=== PATIENT | female | born 2000 ===

== ENCOUNTER 2023-09-17 14:25 | Emergency (ER) | payer MEDICAID ==
[2023-09-17 15:02] LABS: APPEARANCE,URINE SLT CLOUDY; BILIRUBIN,URINE NEGATIVE (NEGATIVE); COLOR,URINE YELLOW; GLUCOSE,URINE NEGATIVE (NEGATIVE); KETONES,URINE 15 mg/dL (NEGATIVE); LEUKOCYTE ESTERASE,URINE MODERATE (NEGATIVE); NITRITE,URINE POSITIVE (NEGATIVE); OCCULT BLOOD,URINE MODERATE (NEGATIVE); PROTEIN,URINE 100 mg/dL (NEGATIVE)
[2023-09-17 15:14] LABS: BACTERIA,URINE 4+ (NEGATIVE); MUCUS,URINE LIGHT (NONE-MOD); SQUAMOUS EPITHELIAL CELLS,UR FEW; WBC,URINE 50-75 (0-5/HPF)
[2023-09-17] MEDS: Ibuprofen 400 MG Tab PO ONE (15:14)
[2023-09-17] MEDS: Sodium Chloride 0.9% 1,000 ML IV ONE (15:14)
[2023-09-17 15:33] LABS: BASOPHILS ABSOLUTE AUTO 0.04 K/uL (0.00-0.20); BASOPHILS PERCENT AUTO 0.3 % (0.0-1.0); EOSINOPHILS ABSOLUTE AUTO 0.18 K/uL (0.00-0.45); EOSINOPHILS PERCENT AUTO 1.5 % (0.0-6.0); HEMATOCRIT 33.4 % (37.0-47.0); HEMOGLOBIN 10.9 g/dL (12.0-16.0); IMMATURE GRAN ABSOLUTE AUTO 0.14 K/uL (0.00-0.05); IMMATURE GRAN PERCENT AUTO 1.2 % (0.0-0.4); LYMPHOCYTES ABSOLUTE AUTO 1.01 K/uL (1.00-4.80); LYMPHOCYTES PERCENT AUTO 8.4 % (24.0-44.0); MEAN CORPUSCULAR HEMOGLOBIN 27.1 pg (28.0-32.0); MEAN CORPUSCULAR HGB CONC 32.6 g/dL (32.0-36.0); MEAN CORPUSCULAR VOLUME 83.1 fL (83.0-99.0); MEAN PLATELET VOLUME 9.1 fL (9.4-12.3); MONOCYTES ABSOLUTE AUTO 0.69 K/uL (0.00-0.80); MONOCYTES PERCENT AUTO 5.7 % (0.0-8.0); NEUTROPHILS ABSOLUTE AUTO 10.02 K/uL (1.80-7.70); NEUTROPHILS PERCENT AUTO 82.9 % (41.0-71.0); PLATELET COUNT,PLT 359 K/uL (150-400); RED BLOOD CELL COUNT 4.02 M/uL (4.10-5.30); WHITE BLOOD CELL COUNT,WBC 12.08 K/uL (3.9-11.3)
[2023-09-17] MEDS: cefTRIAXone 1 GM in Sodium Chloride 0.9% 50 ML IV ONE (15:52)
[2023-09-17 16:00] LABS: A/G RATIO 0.5 (0.9-1.6); ALBUMIN 2.2 g/dL (3.4-5.0); BILIRUBIN TOTAL 0.5 mg/dL (0.2-1.0); CALCIUM 8.8 mg/dL (8.5-10.1); CARBON DIOXIDE,CO2 25.8 mmol/L (21.0-32.0); CREATININE 0.7 mg/dL (0.6-1.0); EST CRCL DRUG DOSING (CG) 111.51 mL/min; POTASSIUM,K 3.5 mmol/L (3.5-5.1); PROTEIN TOTAL,TP 6.8 g/dL (6.4-8.2)
[2023-09-17 16:10] LABS: LACTIC ACID 0.9 mmol/L (0.4-2.0)
[2023-09-17 16:12] LABS: CORONAVIRUS COVID-19 NAA NEGATIVE (NEGATIVE); INFLUENZA A NAA NEGATIVE (NEGATIVE); INFLUENZA B NAA NEGATIVE (NEGATIVE); RESPIRATORY SYNCYTIAL VIR NAA NEGATIVE (NEGATIVE)
== END 2023-09-17 16:59 | disposition home or self-care (01) ==
LOC: MW.ED 14:25
DX: O86.21 Infection of kidney following delivery (principal); N12 Tubulo-interstitial nephritis, not specified as acute or chronic; Z79.899 Other long term (current) drug therapy; Z75.8 Other problems related to medical facilities and other health care
CPT/HCPCS: 0241U; 36415; 76857; 80053; 81001; 83605; 84702; 85025; 87040; 96361; 96365; 99284; A9270; J0696; J3490; J7030

== ENCOUNTER 2023-09-22 11:30 | Emergency (ER) | payer MEDICAID ==
[2023-09-22] MEDS: Sodium Chloride 0.9% 10 ML Syringe FLUSH PRN (12:12)
[2023-09-22] MEDS: Sodium Chloride 0.9% 2.5 ML Syringe FLUSH PRN (12:12)
[2023-09-22 12:44] LABS: A/G RATIO 0.4 (0.9-1.6); ALBUMIN 2.1 g/dL (3.4-5.0); BILIRUBIN TOTAL 0.2 mg/dL (0.2-1.0); CALCIUM 9.1 mg/dL (8.5-10.1); CARBON DIOXIDE,CO2 24.8 mmol/L (21.0-32.0); CREATININE 0.6 mg/dL (0.6-1.0); EST CRCL DRUG DOSING (CG) 135.35 mL/min; POTASSIUM,K 3.5 mmol/L (3.5-5.1)
[2023-09-22 12:55] LABS: BASOPHILS ABSOLUTE AUTO 0.04 K/uL (0.00-0.20); BASOPHILS PERCENT AUTO 0.6 % (0.0-1.0); EOSINOPHILS ABSOLUTE AUTO 0.28 K/uL (0.00-0.45); EOSINOPHILS PERCENT AUTO 4.5 % (0.0-6.0); HEMOGLOBIN 10.2 g/dL (12.0-16.0); IMMATURE GRAN ABSOLUTE AUTO 0.29 K/uL (0.00-0.05); IMMATURE GRAN PERCENT AUTO 4.7 % (0.0-0.4); LYMPHOCYTES ABSOLUTE AUTO 1.88 K/uL (1.00-4.80); LYMPHOCYTES PERCENT AUTO 30.3 % (24.0-44.0); MEAN CORPUSCULAR HEMOGLOBIN 26.7 pg (28.0-32.0); MEAN CORPUSCULAR HGB CONC 31.9 g/dL (32.0-36.0); MEAN CORPUSCULAR VOLUME 83.8 fL (83.0-99.0); MEAN PLATELET VOLUME 9.5 fL (9.4-12.3); MONOCYTES ABSOLUTE AUTO 0.35 K/uL (0.00-0.80); MONOCYTES PERCENT AUTO 5.6 % (0.0-8.0); NEUTROPHILS ABSOLUTE AUTO 3.36 K/uL (1.80-7.70); NEUTROPHILS PERCENT AUTO 54.3 % (41.0-71.0); PLATELET COUNT,PLT 378 K/uL (150-400); RED BLOOD CELL COUNT 3.82 M/uL (4.10-5.30)
[2023-09-22] MEDS: Iopamidol 755 MG/ML 500 ML Multipack Bottle IVPUSH STA (13:16)
== END 2023-09-22 14:32 ==
LOC: MW.ED 11:30
DX: O90.2 Hematoma of obstetric wound (principal); I10 Essential (primary) hypertension; Z79.899 Other long term (current) drug therapy; Z75.8 Other problems related to medical facilities and other health care
CPT/HCPCS: 36415; 74177; 80053; 85025; 99284; J3490; Q9967; 99285

== ENCOUNTER 2023-09-25 18:48 | Emergency (ER) | payer MEDICAID | END 2023-09-25 19:03 | disposition home or self-care (01) | LOC: MW.ED 18:48 | DX: Z48.00 Encounter for change or removal of nonsurgical wound dressing (principal); I10 Essential (primary) hypertension; Z79.899 Other long term (current) drug therapy | CPT/HCPCS: 99282 ==